=== PATIENT | male | born 1985 | race Caucasian/White ===

== ENCOUNTER 2017-12-17 08:08 | Emergency (ER) | payer BC ==
[2017-12-17 08:35] VITALS: BP 127/87
--- NOTE | 2017-12-17 09:01 | RAD ---
INDICATION: Left hand injury. TECHNIQUE: 4 views of the left hand were obtained. FINDINGS: There is a transverse fracture of the distal metaphysis of the fifth metacarpal with anterior angulation of the distal fragment relative to the proximal fragment consistent with a boxer's fracture. No other fractures are seen. Joint spaces appear maintained. IMPRESSION: ANGULATED FRACTURE OF THE DISTAL FIFTH METACARPAL.
--- NOTE | 2017-12-17 09:19 | UC ---
Hand/Wrist HPI - HPI Summary HPI Summary: left hand pain x 1 days punched the door this morning + pain and swelling of the left hand - History Of Current Complaint Chief Complaint: UCUpperExtremity Stated Complaint: LFT HAND INJURY Time Seen by Provider: 12/17/17 08:40 Hx Obtained From: Patient Onset/Duration: Sudden Onset, Lasting Hours - 2, Still Present Severity Initially: Severe Severity Currently: Moderate Pain Intensity: 6 Character Of Pain: Aching, Throbbing Aggravating Factor(s): Movement, Lifting Alleviating Factor(s): Rest, Ice, OTC Meds - ibuprofen Associated Signs And Symptoms: Positive: Swelling, Weakness. Negative: Redness , Bruising, Fever, Numbness/Tingling - Allergies/Home Medications Allergies/Adverse Reactions: Allergies Allergy/AdvReac Type Severity Reaction Status Date / Time amoxicillin [From Augmentin] Allergy Rash Verified 12/17/17 08:36 clavulanic acid Allergy Rash Verified 12/17/17 08:36 [From Augmentin] Home Medications: Home Medications Ibuprofen TAB* [Advil TAB*] 600 mg PO Q6H PRN 12/17/17 [History Confirmed ] PMH/Surg Hx/FS Hx/Imm Hx Previously Healthy: Yes - Surgical History Surgical History: None - Family History Known Family History: Positive: Hypertension, Other - kidney stones - Social History Alcohol Use: Occasionally Substance Use Type: None Smoking Status (MU): Never Smoked Tobacco Review of Systems Constitutional: Negative Skin: Negative Eyes: Negative ENT: Negative Respiratory: Negative Is Patient Immunocompromised?: No All Other Systems Reviewed And Are Negative: Yes Physical Exam Triage Information Reviewed: Yes Appearance: Well-Appearing, No Pain Distress, Well-Nourished Vital Signs: Initial Vital Signs Temp 98.1 F 12/17/17 08:26 Pulse 61 12/17/17 08:26 Resp 14 12/17/17 08:26 BP 127/87 12/17/17 08:26 Pulse Ox 99 12/17/17 08:26 Vital Signs Reviewed: Yes Eyes: Positive: Conjunctiva Clear ENT: Positive: Normal ENT inspection, Hearing grossly normal, Pharynx normal Neck exam: Normal Neck: Positive: Supple, Nontender, No Lymphadenopathy Respiratory: Positive: Chest non-tender, Lungs clear, Normal breath sounds Cardiovascular: Positive: RRR, No Murmur, Pulses Normal Musculoskeletal: Positive: Other: - left hand : + swelling , no ecchymosis, + tenderness left 5th metacarpal , limited ROM on flexion , limited strength Diagnostics - Laboratory Diagnostic Studies Completed/Ordered: left hand xray: IMPRESSION: ANGULATED FRACTURE OF THE DISTAL FIFTH METACARPAL. Hand/Wrist Course/Dx - Differential Dx/Diagnosis Provider Diagnoses: Boxer fracture left hand Discharge - Sign-Out/Discharge Documenting (check all that apply): Discharge/Admit/Transfer - Discharge Plan Condition: Stable Disposition: HOME Patient Education Materials: Boxer Fracture (ED) Referrals: Brando Hernandez MD [Medical Doctor] - As Soon As Possible No Primary Care Phys,NOPCP [Primary Care Provider] - - Billing Disposition and Condition Condition: STABLE Disposition: Home
== END 2017-12-17 09:21 | disposition home or self-care (01) ==
LOC: UCCORT 08:08
DX: S62.337A Displaced fracture of neck of fifth metacarpal bone, left hand, initial encounter for closed fracture (principal); W22.09XA Striking against other stationary object, initial encounter; Y93.9 Activity, unspecified; Y92.9 Unspecified place or not applicable; Z88.0 Allergy status to penicillin; Z88.8 Allergy status to other drugs, medicaments and biological substances
CPT/HCPCS: 99211; G0463

== ENCOUNTER 2018-07-03 08:13 | Emergency (ER) | payer BC ==
[2018-07-03 08:40] VITALS: BP 121/77
--- NOTE | 2018-07-03 09:24 | ED ---
Lower Extremity - HPI Summary HPI Summary: 32 yr old male with a personal history of gout and family history of gout presents here with right foot 1st MP joint swelling, redness and pain. Onset 3 days ago. He has had some indulgence in the holiday food and ETOH. Complains of pain, redness, and symptoms that are moderate. He feels like this is a prior gout flare. No fever. he denies trauma or injury. - History of Current Complaint Chief Complaint: UCLowerExtremity Stated Complaint: RIGHT FOOT COMPLAINT Time Seen by Provider: 07/03/18 08:52 Pain Intensity: 6 - Allergies/Home Medications Allergies/Adverse Reactions: Allergies Allergy/AdvReac Type Severity Reaction Status Date / Time amoxicillin [From Augmentin] Allergy Rash Verified 07/03/18 08:33 clavulanic acid Allergy Rash Verified 07/03/18 08:33 [From Augmentin] PMH/Surg Hx/FS Hx/Imm Hx Endocrine/Hematology History: Denies: Hx Diabetes, Hx Thyroid Disease Cardiovascular History: Denies: Hx Hypertension Respiratory History: Denies: Hx Asthma, Hx Chronic Obstructive Pulmonary Disease (COPD) GI History: Denies: Hx Ulcer History: Reports: Hx Kidney Stones Infectious Disease History: No Infectious Disease History: Denies: Hx Hepatitis, Hx Human Immunodeficiency Virus (HIV), Traveled Outside the [place] in Last 30 Days - Family History Known Family History: Positive: Hypertension, Other - kidney stones - Social History Alcohol Use: Rare Substance Use Type: Reports: None Smoking Status (MU): Never Smoked Tobacco Review of Systems Constitutional: Negative Positive: Other - pain swelling right first MP All Other Systems Reviewed And Are Negative: Yes Physical Exam Triage Information Reviewed: Yes Vital Signs On Initial Exam: Initial Vitals Temp Pulse Resp BP Pulse Ox 97.2 F 78 16 121/77 99 07/03/18 08:34 07/03/18 08:34 07/03/18 08:34 07/03/18 08:34 07/03/18 08:34 Vital Signs Reviewed: Yes Appearance: Positive: Well-Appearing, No Pain Distress Skin: Positive: Warm, Skin Color Reflects Adequate Perfusion Head/Face: Positive: Normal Head/Face Inspection Eyes: Positive: EOMI ENT: Positive: Normal ENT inspection Neck: Positive: Nontender Respiratory/Lung Sounds: Positive: Clear to Auscultation, Breath Sounds Present Cardiovascular: Positive: RRR. Negative: Pulses are Symmetrical in both Upper and Lower Extremities Abdomen Description: Positive: Nontender Musculoskeletal: Positive: Other - there is mild edema and obvious tenderness to the right 1st MP joint foot. Slight erythema to the same area. No deformity , no bruise. The pulses are intact in the DP and PT area. Neurological: Positive: Sensory/Motor Intact, Alert, Oriented to Person Place, Time, CN Intact II-III Psychiatric: Positive: Normal - Nelly Coma Scale Best Eye Response: 4 - Spontaneous Best Motor Response: 6 - Obeys Commands Best Verbal Response: 5 - Oriented Coma Scale Total: 15 Diagnostics - Vital Signs Vital Signs Temp Pulse Resp BP Pulse Ox 07/03/18 08:34 97.2 F 78 16 121/77 99 - Laboratory Lab Statement: Any lab studies that have been ordered have been reviewed, and results considered in the medical decision making process. Lower Extremity Course/Dx - Course Course Of Treatment: 32 yr old with gout flare. DC home in stable condition on indocin. FU with primary referral. - Diagnoses Provider Diagnoses: Gout attack Discharge - Sign-Out/Discharge Documenting (check all that apply): Patient Departure All imaging exams completed and their final reports reviewed: No Studies - Discharge Plan Condition: Good Disposition: HOME Prescriptions: Indomethacin CAP* [Indocin CAP*] 50 mg PO TID PRN #21 cap PRN Reason: Pain Patient Education Materials: Gout (ED) Forms: *Work Release Referrals: No Primary Care Phys,NOPCP [Primary Care Provider] - [facility] [place] PHYSICIAN REFERRAL [Outside] - 2 Days - Billing Disposition and Condition Condition: GOOD Disposition: Home
== END 2018-07-03 09:31 | disposition home or self-care (01) ==
LOC: UCCORT 08:13
DX: M10.9 Gout, unspecified (principal); Z88.2 Allergy status to sulfonamides; Z88.8 Allergy status to other drugs, medicaments and biological substances; I10 Essential (primary) hypertension
CPT/HCPCS: 99212; G0463

== ENCOUNTER 2018-07-07 12:10 | Emergency (ER) | payer BC ==
--- NOTE | 2018-07-07 12:51 | UC ---
Dizzy HPI HPI Summary: Onset of dizziness and feeling of presyncope that started today while at work. Patient has a desk job. Was not doing anything strenuous. Has had a head cold for about a month he says but denies any cough, fever, nausea/vomiting. Is currently taking indomethacin for gout. - History Of Current Complaint Stated Complaint: DIZZINESS Time Seen by Provider: 07/07/18 12:16 Hx Obtained From: Patient Onset/Duration: Sudden Onset, Lasting Hours, Still Present Timing: Constant Pain Intensity: 0 - Allergies/Home Medications Allergies/Adverse Reactions: Allergies Allergy/AdvReac Type Severity Reaction Status Date / Time amoxicillin [From Augmentin] Allergy Rash Verified 07/07/18 12:16 clavulanic acid Allergy Rash Verified 07/07/18 12:16 [From Augmentin] PMH/Surg Hx/FS Hx/Imm Hx Previously Healthy: Yes - Surgical History Surgical History: None - Family History Known Family History: Positive: Hypertension, Other - kidney stones - Social History Alcohol Use: Rare Substance Use Type: None Smoking Status (MU): Never Smoked Tobacco Review of Systems All Other Systems Reviewed And Are Negative: Yes Constitutional: Positive: Negative Skin: Positive: Negative ENT: Positive: Negative Respiratory: Positive: Negative Cardiovascular: Positive: Negative Gastrointestinal: Positive: Negative Neurological: Positive: Other - DIZZY, PRESYNCOPAL Physical Exam Triage Information Reviewed: Yes Appearance: No Pain Distress, Well-Nourished, Ill-Appearing - PT SEEMS LISTLESS. NOT MAKING EYE CONTACT Vital Signs: Initial Vital Signs Temp 97.1 F 07/07/18 12:17 Pulse 79 07/07/18 12:17 Resp 15 07/07/18 12:17 BP 156/97 07/07/18 12:17 Pulse Ox 99 07/07/18 12:17 Laboratory Tests 07/07/18 12:38 Influenza A (Rapid) Negative Influenza B (Rapid) Negative Vital Signs Reviewed: Yes Eyes: Positive: Conjunctiva Clear ENT: Positive: Hearing grossly normal, Pharynx normal, TMs normal Neck: Positive: Supple, Nontender, No Lymphadenopathy Respiratory Exam: Normal Cardiovascular Exam: Normal Abdomen Description: Positive: Nontender, Soft Bowel Sounds: Positive: Present Musculoskeletal: Positive: No Edema Neurological: Positive: Alert Psychological: Positive: Age Appropriate Behavior, Other: - FLAT AFFECT Skin: Negative: Rashes Diagnostics - EKG Cardiac Rate: NL - 75BPM Cardiac Rhythm: Sinus: Normal - SINUS ARRHYTHMIA Ectopy: None ST Segment: Normal Dizzy Course/Dx - Course Course Of Treatment: FLU NEG. EKG UNREMARKABLE. PT WITH PERSISTENT DIZZINESS AND FEELING OF PRESYNCOPE. WILL SEND TO [facility] ED BY AMBULANCE. - Differential Dx/Diagnosis Provider Diagnosis: Dizzy, Pre-syncope - Physician Notifications Discussed Patient Care With: Lisa Troy Time Discussed With Above Provider: 12:50 Instructed by Provider To: MD Will See In ED Discharge - Sign-Out/Discharge Documenting (check all that apply): Patient Departure All imaging exams completed and their final reports reviewed: No Studies - Discharge Plan Condition: Stable Disposition: TRANS HIGHER LVL OF CARE FAC Referrals: No Primary Care Phys,NOPCP [Primary Care Provider] - - Billing Disposition and Condition Condition: STABLE Disposition: Trans Higher Lvl of Care Fac
[2018-07-07 12:57] VITALS: BP 160/77
== END 2018-07-07 13:00 | disposition short-term general hospital (02) ==
LOC: UCCORT 12:10
DX: R42 Dizziness and giddiness (principal); R55 Syncope and collapse; Z88.0 Allergy status to penicillin; Z88.8 Allergy status to other drugs, medicaments and biological substances
CPT/HCPCS: 93005; 99213; G0463

== ENCOUNTER 2019-03-19 11:44 | Emergency (ER) | payer BC ==
--- OUTSIDE RECORDS SUMMARY | 2019-03-19 12:41 | XMS REPORT | Continuity of Care Document ---
:1985 External Reference #:[id number] Author Name Cynthia Dodson M.D. 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 Onset: 02/05/2019 Social History Type Date Description Comments Sex Unknown Tobacco Use Start: Unknown End: Quit Smoking Status Reviewed: 02/05/19 Quit ETOH Use Currently consumes alcohol socially Tobacco Use Start: Unknown End: Patient is a former smoker Unknown Recreational Drug Use Denies Drug Use Exercise Type/Frequency Exercises regularly Allergies, Adverse Reactions, Alerts Active Allergies Reaction Severity Comments Date Augmentin 12/17/2016 Indomethacin 10/15/2018 Medications Active Medications SIG Qnty Indications Ordering Provider Date Ibuprofen take 2 tablets by Unknown 200mg Tablets mouth as needed for back pain, up to 4 times per day History Medications No Active Medications Unknown 09/23/2018 - 10/24/2018 Immunizations Description No Information Available Vital Signs Date Vital Result Comment 02/05/2019 2:41pm BP Systolic Sitting Right Arm 136 mmHg BP Diastolic Sitting Right Arm 88 mmHg Body Temperature 94.7 F Heart Rate 78 /min Respiratory Rate 16 /min Height 64 inches 5'4" Weight 211.00 lb BMI (Body Mass Index) 36.2 kg/m2 BSA (Body Surface Area) 2.00 m2 Smiley body weight in kilograms 59 kg O2 % BldC Oximetry 100 % 11/04/2018 10:28am BP Systolic 101 mmHg BP Diastolic 69 mmHg Heart Rate 68 /min Respiratory Rate 16 /min Height 64 inches 5'4" Weight 208.00 lb BMI (Body Mass Index) 35.7 kg/m2 BSA (Body Surface Area) 1.99 m2 Smiley body weight in kilograms 59 kg O2 % BldC Oximetry 97 % Pain Level 0 Results Test Date Facility Test Result H/L Range Note Basic Metabolic 01/27/2019 [facility] Glucose 92 mg/dL Normal 74-106 [address] [place] [address] [phone] BUN 12 mg/dL Normal 7-18 Creatinine 0.9 mg/dL Normal 0.6-1.3 Glom Filtration Rate, Estimate >60 mL/min >60 If >60 mL/min >60 2 BUN/Creat 13.3 ratio Sodium 140 mmol/L Normal 136-145 Potassium 3.7 mmol/L Normal 3.5-5.1 Chloride 107 mmol/L Normal 98-107 Carbon Dioxide 26 mmol/L Normal 21-32 Anion Gap 7 mEq/L Low 8-16 Calcium 8.9 mg/dL Normal 8.5-10.1 Comprehensive 09/30/2018 [facility] Glucose 84 mg/dL Normal 74-106 3 Metabolic [address] [place] [address] [phone] BUN 13 mg/dL Normal 7-18 Creatinine 0.9 mg/dL Normal 0.6-1.3 Glom Filtration Rate, Estimate >60 mL/min >60 If >60 mL/min >60 4 BUN/Creat 14.4 ratio Sodium 139 mmol/L Normal 136-145 Potassium 4.0 mmol/L Normal 3.5-5.1 Chloride 107 mmol/L Normal 98-107 Carbon Dioxide 28 mmol/L Normal 21-32 Anion Gap 4 mEq/L Low 8-16 Calcium 10.0 mg/dL Normal 8.5-10.1 Total Protein 8.8 g/dL High 6.4-8.2 Albumin 4.9 g/dL Normal 3.4-5.0 Globulin 3.9 g/dL Normal 1.9-4.3 Alb/Glob 1.3 ratio Bilirubin,Total 0.8 mg/dL Normal 0.2-1.0 Sgot/Ast 33 U/L Normal 15-37 SGPT/Alt 53 U/L Normal 12-78 Alkaline Phosphatase 65 U/L Normal 45-117 CBC W/Automated 09/30/2018 [facility] White Blood 6.1 K/uL Normal 3.4-10.[address] [place] [address] [phone] Red Blood Count 5.82 M/uL High 4.20-5.80 Hemoglobin 17.0 gm/dL Normal 12.8-17.0 Hematocrit 51.0 % High 38.0-48.0 Mean Cell Volume 87.6 fl Normal 80.0-96.0 Mean Corpuscular HGB 29.2 pg Normal 27.0-33.0 Mean Corpuscular HGB Conc 33.3 g/dL Normal 31.7-36.0 Platelet Count 391 K/uL High 155-360 Red Cell Distri Width SD 40.8 fl Normal 36-51 Red Cell Distri Width %CV 12.7 % Normal 11.6-15.8 Mean Platelet Volume 9.5 fl Normal 6.6-10.6 Neut% 52.0 % Normal 33.0-73.0 Lymph % 33.1 % Normal 20.0-42.0 Swisher % 12.7 % High 0.0-10.0 Eo% 1.5 % Normal 0.0-6.6 Bas% 0.5 % Normal 0.0-1.1 Immature Grans 0.2 % Normal 0.0-5.0 NRBC % 0.0 /100WBC < 10/ 100 WBC Neut# 3.20 K/uL Normal 1.8-7.0 Lymph # 2.03 K/uL Normal 1.0-4.0 Swisher # 0.78 K/uL Normal 0.0-0.8 Eos # 0.09 K/uL Normal 0.0-0.5 Baso # 0.03 K/uL Normal 0.0-0.1 Immature Grans Absolute 0.01 K/uL NRBC # 0.00 K/uL Laboratory test finding 09/30/2018 [facility] Lipase 137 U/L Normal 56-289 [address] [place] [address] [phone] 1 N20.0 D41.01 2 Note: Persistent reduction for 3 months or more in an eGFR <60 mL/min/1.73 m2 defines CKD. Patients with eGFR values >/=60 mL/min/1.73 m2 may also have CKD if evidence of persistent proteinuria is present. The original MDRD equation for estimated GFR is not valid for patients less than 18 years of age. Additional information may be found at www.kdoqi.org. 3 UNSPEC ABD PAIN R10.9 4 Note: Persistent reduction for 3 months or more in an eGFR <60 mL/min/1.73 m2 defines CKD. Patients with eGFR values >/=60 mL/min/1.73 m2 may also have CKD if evidence of persistent proteinuria is present. The original MDRD equation for estimated GFR is not valid for patients less than 18 years of age. Additional information may be found at www.kdoqi.org. Procedures Date Code Description Status 10/16/2018 80179 Enucleation or excision external thrombotic hemorrhoid Completed Medical Devices Description No Information Available Encounters Type Date Location Provider Dx Diagnosis Office Visit 02/05/2019 2:45p Urology Cynthia Dodson M.D. 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 02/05/2019 N28.1 Cyst of kidney, acquired Cynthia Dodson M.D. 11/04/2018 N20.0 Calculus of kidney Cynthia Dodson M.D. 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 at [id number]/[email or web address] - Cynthia Dodson M.D.N20.0 Calculus of kidneyNew Xrays:Ultrasound, Renal & Bladder, Ordered: 02/05/19Comments:Today we reviewed the recent litholink 24-hour urine studies, the recommendations listed below were discussed with the patient in detail and all questions were answered. General recommendations for kidney stone prevention was reviewed- Maintain urine volume - Hyperoxaluria: Give him education materialon high oxalate food. - Hyperuricosuria : Decrease meat products. Patient to follow up with me in 1year with [id number] Cyst of kidney, acquiredComments:This is benign and does not require follow-up. Patient was reassured. Functional Status Description No Information Available Mental Status Description No Information Available Referrals Refer to Reason for Referral Status Appt Date Cynthia Dodson M.D. 1.5 CM LESION NOTED IN THE UPPER POLE OF THE Closed RIGHT KIDNEY POSSIBLY SOLID RENAL MASS PER RECENT CT [address], [place] [address] [phone]
[2019-03-19 12:59] VITALS: BP 127/72
--- NOTE | 2019-03-19 13:12 | UC ---
Ear Complaint HPI - HPI Summary HPI Summary: Pt presents with c/o nasal congestion, cough, ST, and worsening left ear pain X 3-4 days. - History of Current Complaint Chief Complaint: UCEar Stated Complaint: LEFT EAR COMPLAINT Time Seen by Provider: 03/19/19 12:55 Hx Obtained From: Patient Onset/Duration: Gradual Onset, Lasting Days, Still Present Severity Initially: Mild Severity Currently: Moderate Pain Intensity: 3 Alleviating Factors: Nothing Associated Signs/Symptoms: Positive: Hearing Loss, URI Symptoms - Allergies/Home Medications Allergies/Adverse Reactions: Allergies Allergy/AdvReac Type Severity Reaction Status Date / Time indomethacin Allergy Severe suicidal Verified 03/19/19 12:51 thoughts amoxicillin [From Augmentin] Allergy Rash Verified 03/19/19 12:51 clavulanic acid Allergy Rash Verified 03/19/19 12:51 [From Augmentin] PMH/Surg Hx/FS Hx/Imm Hx Previously Healthy: Yes - Surgical History Surgical History: Yes Surgery Procedure, Year, and Place: HEMMORHOIDECTOMY - Family History Known Family History: Positive: Hypertension, Other - kidney stones - Social History Occupation: Employed Full-time Lives: With Family Alcohol Use: None Substance Use Type: None Smoking Status (MU): Never Smoked Tobacco Have You Smoked in the Last Year: No Review of Systems All Other Systems Reviewed And Are Negative: Yes Constitutional: Positive: Chills, Fatigue Skin: Positive: Negative Eyes: Positive: Negative ENT: Positive: Sore Throat, Ear Ache - left ear., Sinus Congestion Respiratory: Positive: Cough Cardiovascular: Positive: Negative Gastrointestinal: Positive: Negative Genitourinary: Positive: Negative Motor: Positive: Negative Neurovascular: Positive: Negative Musculoskeletal: Positive: Negative Neurological: Positive: Headache Psychological: Positive: Negative Is Patient Immunocompromised?: No Physical Exam Triage Information Reviewed: Yes Appearance: Ill-Appearing Vital Signs: Initial Vital Signs Temp 98.5 F 03/19/19 12:52 Pulse 87 03/19/19 12:52 Resp 16 03/19/19 12:52 BP 127/72 03/19/19 12:52 Pulse Ox 99 03/19/19 12:52 Vital Signs Reviewed: Yes Eye Exam: Normal ENT: Positive: Nasal congestion, TM bulging - left, TM red - left Dental Exam: Normal Neck exam: Normal Neck: Positive: Supple, Nontender, No Lymphadenopathy Respiratory Exam: Normal Respiratory: Positive: Normal breath sounds Cardiovascular Exam: Normal Musculoskeletal Exam: Normal Neurological Exam: Normal Psychological Exam: Normal Skin Exam: Normal Ear Complaint Course/Dx - Differential Dx/Diagnosis Differential Diagnosis/HQI/PQRI: Otitis Externa, Otitis Media, URI Provider Diagnosis: Otitis media of left ear Discharge ED - Sign-Out/Discharge Documenting (check all that apply): Patient Departure All imaging exams completed and their final reports reviewed: No Studies - Discharge Plan Condition: Stable Disposition: HOME Prescriptions: Azithromycin TAB* [Zithromax TAB (Z-AKIKO) 250 mg #6 tabs] 2 tab PO .TODAY, THEN 1 DAILY #1 akiko Patient Education Materials: Ear Infection (ED) Referrals: [facility] [place] [facility]IAN REFERRAL [Outside] No Primary Care Phys,NOPCP [Primary Care Provider] - - Billing Disposition and Condition Condition: STABLE Disposition: Home
== END 2019-03-19 13:20 | disposition home or self-care (01) ==
LOC: UCCORT 11:44
DX: H66.92 Otitis media, unspecified, left ear (principal); Z88.0 Allergy status to penicillin
CPT/HCPCS: 99212; G0463

== ENCOUNTER 2019-03-24 16:15 | Emergency (ER) | payer BC ==
[2019-03-24] MEDS ORDERED: traMADol TAB* 50 MG PO ONE (18:53)
--- NOTE | 2019-03-24 18:57 | ED ---
Throat Pain/Nasal Congestion - HPI Summary HPI Summary: This patient is a 33 year old M presenting to [facility] with a chief complaint of ear pain since 03/23/19. Patient states he was seen at and prescribed antibiotics with no relief. Patient states that pain in ear increased as a result he came to the ED. The patient rates the pain 5/10 in severity. Symptoms aggravated by nothing. Symptoms alleviated by nothing. Patient reports ear pain , pharyngitis and jaw pain. Patient denies fever, chills, nausea and vomiting. Medications reviewed. Allergies noted. Allergies Allergy/AdvReac Type Severity Reaction Status Date / Time indomethacin Allergy Severe suicidal Verified 03/19/19 12:51 thoughts amoxicillin [From Augmentin] Allergy Rash Verified 03/19/19 12:51 clavulanic acid Allergy Rash Verified 03/19/19 12:51 [From Augmentin] Home Medications Medication Instructions Recorded Confirmed Type Ibuprofen TAB* [Advil TAB*] 600 mg PO Q6H PRN 12/17/17 03/24/19 History traMADol TAB* [Ultram*] 50 mg PO Q12H PRN #10 tab MDD 2 03/24/19 Rx tablets - History of Current Complaint Chief Complaint: EDEarPain Time Seen by Provider: 03/24/19 18:35 Hx Obtained From: Patient Onset/Duration: Gradual Onset, Lasting Days - 03/23/19 Severity: Mild Associated Signs And Symptoms: Positive: Negative Cough: None - Allergies/Home Medications Allergies/Adverse Reactions: Allergies Allergy/AdvReac Type Severity Reaction Status Date / Time indomethacin Allergy Severe suicidal Verified 03/19/19 12:51 thoughts amoxicillin [From Augmentin] Allergy Rash Verified 03/19/19 12:51 clavulanic acid Allergy Rash Verified 03/19/19 12:51 [From Augmentin] PMH/Surg Hx/FS Hx/Imm Hx Endocrine/Hematology History: Denies: Hx Diabetes, Hx Thyroid Disease Cardiovascular History: Denies: Hx Hypertension Respiratory History: Denies: Hx Asthma, Hx Chronic Obstructive Pulmonary Disease (COPD) GI History: Denies: Hx Ulcer History: Reports: Hx Kidney Stones - Surgical History Surgery Procedure, Year, and Place: HEMMORHOIDECTOMY Infectious Disease History: No Infectious Disease History: Denies: Hx Hepatitis, Hx Human Immunodeficiency Virus (HIV), Traveled Outside the [place] in Last 30 Days - Family History Known Family History: Positive: Hypertension, Other - kidney stones - Social History Alcohol Use: None Substance Use Type: Reports: None Hx Tobacco Use: No Smoking Status (MU): Never Smoked Tobacco Have You Smoked in the Last Year: No Review of Systems Negative: Fever, Chills Positive: Ear Ache, Other - jaw pain and pharyngitis Negative: Vomiting, Nausea All Other Systems Reviewed And Are Negative: Yes Physical Exam - Summary Physical Exam Summary: Constitutional: Well-developed, Well-nourished, Alert. (-) Distressed Skin: Warm, Dry HENT: Normocephalic; Atraumatic, no Pharyngeal erythema, no surrounding erythema, pain with ear manipulation, drainage in external ear canal, patient able to open and close mouth, no sublingual or dub mandible swelling Eyes: Conjunctiva normal Neck: Musculoskeletal ROM normal neck. (-) JVD, (-) Stridor, (-) Tracheal deviation Cardio: Rhythm regular, rate normal, Heart sounds normal; Intact distal pulses; . Radial pulses are 2+ and symmetric. (-) Murmur Pulmonary/Chest wall: Effort normal. (-) Respiratory distress, (-) Wheezes, (-) Rales Abd: Soft, (-) tenderness, (-) Distension, (-) Guarding, (-) Rebound Musculoskeletal: (-) Edema Lymph: (-) Cervical adenopathy Neuro: Alert, Oriented x3 Psych: Mood and affect Normal Triage Information Reviewed: Yes Vital Signs On Initial Exam: Initial Vitals Temp Pulse Resp BP Pulse Ox 98.3 F 63 17 157/99 99 03/24/19 16:18 03/24/19 16:18 03/24/19 16:18 03/24/19 16:18 03/24/19 16:18 Vital Signs Reviewed: Yes Diagnostics - Vital Signs Vital Signs Temp Pulse Resp BP Pulse Ox 03/24/19 16:18 98.3 F 63 17 157/99 99 - Laboratory Lab Statement: Any lab studies that have been ordered have been reviewed, and results considered in the medical decision making process. EENT Course/Dx - Course Course Of Treatment: Patient is here with signs consistent with otitis externa. She is currently on antibiotics for sinus a lattice of his ear which was not present on exam today. Patient did have pain with pinna manipulation and some discharge in his external ear. Patient's guardian Ciprodex drops. Patient's main concern was his pain which was untreated. Patient started on a short course of tramadol - Diagnoses Provider Diagnoses: Otitis externa Discharge ED - Sign-Out/Discharge Documenting (check all that apply): Patient Departure - discharge Patient Received Moderate/Deep Sedation with Procedure: No - Discharge Plan Condition: Stable Disposition: HOME Prescriptions: traMADol TAB* [Ultram*] 50 mg PO Q12H PRN #10 tab MDD 2 tablets PRN Reason: Pain - Severe Patient Education Materials: Otitis Externa (ED) Referrals: [facility] [Outside] - 3 Days Additional Instructions: PLEASE RETURN TO EMERGENCY DEPARTMENT FOR ANY NEW OR WORSENING SYMPTOMS. FOLLOW UP WITH YOUR PRIMARY CARE PHYSICIAN IN 1-3 DAYS. PLEASE CONTINUE ANTIBIOTICS WELL EAR DROPS AND TAKE PAIN MEDICATION PRESCRIBED. - Billing Disposition and Condition Condition: STABLE Disposition: Home - Attestation Statements Document Initiated by Nandaibe: Yes Documenting Scribe: Diana Martines Provider For Whom Nandaibe is Documenting (Include Credential): Dr. Kristopher Lemons MD Scribe Attestation: Diana Rogers scribed for Dr. Kristopher Lemons MD on 03/27/19 at 0745. Scribe Documentation Reviewed: Yes Provider Attestation: The documentation as recorded by the Diana espino accurately reflects the service I personally performed and the decisions made by , Dr. Kristopher Lemons MD Status of Scribe Document: Viewed
[2019-03-24 19:09] VITALS: BP 135/86
== END 2019-03-24 19:08 | disposition home or self-care (01) ==
LOC: ED 16:15
DX: H60.90 Unspecified otitis externa, unspecified ear (principal); Z88.6 Allergy status to analgesic agent; Z88.1 Allergy status to other antibiotic agents
CPT/HCPCS: 99282; A9270-GY

== ENCOUNTER 2019-05-14 18:11 | Emergency (ER) | payer BC ==
[2019-05-14 19:01] VITALS: BP 122/69
--- NOTE | 2019-05-14 19:28 | UC ---
Respiratory Complaint HPI - HPI Summary HPI Summary: Pt presents with c/o cough, SOB, wheezing, chills, body aches X 2 weeks. Pt saw PCP and referred to equity trader and had pft today. - History of Current Complaint Chief Complaint: UCRespiratory Stated Complaint: COUGH & CONGESTION Time Seen by Provider: 05/14/19 19:18 Hx Obtained From: Patient Onset/Duration: Sudden Onset, Lasting Weeks, Still Present Timing: Constant Severity Initially: Mild Severity Currently: Moderate Pain Intensity: 4 Aggravating Factors: Exertion, Deep Breaths, Recumbent Position Alleviating Factors: Nothing Associated Signs And Symptoms: Positive: Fever, Chills, URI, Nasal Congestion - Risk Factors Pulmonary Embolism Risk Factors: Negative Cardiac Risk Factors: Negative Pseudomonas Risk Factors: Negative Tuberculosis Risk Factors: Negative - Allergies/Home Medications Allergies/Adverse Reactions: Allergies Allergy/AdvReac Type Severity Reaction Status Date / Time indomethacin Allergy Severe suicidal Verified 05/14/19 19:01 thoughts amoxicillin [From Augmentin] Allergy Rash Verified 05/14/19 19:01 clavulanic acid Allergy Rash Verified 05/14/19 19:01 [From Augmentin] Home Medications: Home Medications Albuterol HFA INHALER* [Ventolin HFA Inhaler*] 2 puff INH Q4H PRN 05/14/19 [ History Confirmed 05/14/19] PMH/Surg Hx/FS Hx/Imm Hx Previously Healthy: Yes - Surgical History Surgical History: Yes Surgery Procedure, Year, and Place: HEMMORHOIDECTOMY - Family History Known Family History: Positive: Hypertension, Other - kidney stones - Social History Occupation: Employed Full-time Lives: With Family Alcohol Use: None Substance Use Type: None Smoking Status (MU): Never Smoked Tobacco Have You Smoked in the Last Year: No - Immunization History Vaccination Up to Date: Yes Review of Systems All Other Systems Reviewed And Are Negative: Yes Constitutional: Positive: Fever, Chills, Fatigue Skin: Positive: Negative Eyes: Positive: Negative ENT: Positive: Sinus Congestion Respiratory: Positive: Shortness Of Breath, Cough Cardiovascular: Positive: Negative Gastrointestinal: Positive: Negative Genitourinary: Positive: Negative Motor: Positive: Negative Neurovascular: Positive: Negative Musculoskeletal: Positive: Myalgia Neurological: Positive: Negative Psychological: Positive: Negative Is Patient Immunocompromised?: No Physical Exam Triage Information Reviewed: Yes Appearance: Ill-Appearing Vital Signs: Initial Vital Signs Temp 100.8 F 05/14/19 18:53 Pulse 91 05/14/19 18:53 Resp 16 05/14/19 18:53 BP 122/69 05/14/19 18:53 Pulse Ox 99 05/14/19 18:53 Vital Signs Reviewed: Yes Eye Exam: Normal ENT: Positive: Nasal congestion Dental Exam: Normal Neck exam: Normal Respiratory: Positive: Wheezing Cardiovascular Exam: Normal Musculoskeletal Exam: Normal Neurological Exam: Normal Psychological Exam: Normal Skin Exam: Normal Respiratory Course/Dx - Differential Dx/Diagnosis Differential Diagnosis/HQI/PQRI: Bronchitis, Exacerbation Of COPD Provider Diagnosis: Bronchitis Discharge ED - Sign-Out/Discharge Documenting (check all that apply): Patient Departure All imaging exams completed and their final reports reviewed: No Studies - Discharge Plan Condition: Stable Disposition: HOME Prescriptions: Azithromycin TAB* [Zithromax TAB (Z-AKIKO) 250 mg #6 tabs] 2 tab PO .TODAY, THEN 1 DAILY #1 akiko Benzonatate CAP* [Tessalon 100 MG CAP*] 100 mg PO Q8H PRN #30 cap PRN Reason: Cough Cetirizine* [ZyrTEC 10 MG TAB*] 10 mg PO DAILY #14 tab Montelukast Sodium TAB* [Singulair TAB*] 10 mg PO BEDTIME #14 tab predniSONE TAB* [Deltasone 10 MG TAB*] 30 mg PO DAILY #12 tab Patient Education Materials: Acute Cough (ED) Referrals: Stacie Walsh PA [Primary Care Provider] - As Soon As Possible Arik Robertson MD [Medical Doctor] - As Soon As Possible - Billing Disposition and Condition Condition: STABLE Disposition: Home
== END 2019-05-14 20:01 | disposition home or self-care (01) ==
LOC: UCCORT 18:11
DX: J40 Bronchitis, not specified as acute or chronic (principal); R09.81 Nasal congestion; Z88.0 Allergy status to penicillin; Z88.8 Allergy status to other drugs, medicaments and biological substances
CPT/HCPCS: 99212; G0463